=== PATIENT | female | born 1995 | race Caucasian/White ===

== ENCOUNTER 2023-03-03 19:32 | Inpatient (IN) | payer MEDICAID, OTHER ==
[2023-03-03] MEDS ORDERED: HALOPERIDOL LACTATE 5 MG/ML 1 ML VIAL IM PRN (19:51)
[2023-03-03] MEDS ORDERED: MAG HYDROX/AL HYDROX/SIMETH 30 ML CUP PO PRN (19:51)
[2023-03-03] MEDS ORDERED: LORazepam 1 MG TAB PO PRN (19:51)
[2023-03-03] MEDS ORDERED: LORazepam 2 MG/ML INJ IM PRN (19:53)
[2023-03-03] MEDS ORDERED: haloperidoL 5 MG TAB PO PRN (19:54)
[2023-03-03] MEDS: levETIRAcetam 500 MG TAB PO SCH (23:54)
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
[2023-03-04 08:37] LABS: Basophils # (A) 0.1 k/uL (0-0.2); Basophils % (A) 1 %; Eosinophils # (A) 0.7 k/uL (0-0.7); Eosinophils % (A) 8 %; HCT 27.8 % (34.0-46.0); HGB 9.6 gm/dL (11.4-16.0); Lymphocytes # (A) 2.3 k/uL (1.0-4.8); Lymphocytes % (A) 26 %; MCH 32.5 pg (25.0-35.0); MCHC 34.5 g/dL (31.0-37.0); MCV 94.1 fL (80.0-100.0); Mean Platelet Volume 6.9; Monocytes # (A) 0.5 k/uL (0-1.0); Monocytes % (A) 5 %; Neutrophils # (A) 5.1 k/uL (1.3-7.7); Neutrophils % (A) 58 %; Platelet Count 416 k/uL (150-450); RBC 2.95 m/uL (3.80-5.40); RDW 15.2 % (11.5-15.5); WBC 8.9 k/uL (3.8-10.6)
[2023-03-04] MEDS: levETIRAcetam 500 MG TAB PO SCH ×2 (08:48→20:44)
[2023-03-04] MEDS: POTASSIUM CHLORIDE ER 20 MEQ TAB.ER PO SCH (08:48)
[2023-03-04] MEDS: NIFEdipine XL 90 MG TAB.ER.24 PO SCH (08:48)
[2023-03-04] MEDS: PANTOPRAZOLE 40 MG TABLET PO SCH (08:49)
[2023-03-04] MEDS: THIAMINE 100 MG TAB PO SCH (08:49)
[2023-03-04] MEDS: MULTIVITAMINS, THERA 1 EACH TAB PO SCH (08:49)
[2023-03-04] MEDS: FOLIC ACID 1 MG TAB PO SCH (08:49)
[2023-03-04] MEDS: LIDOCAINE 5% PATCH TOPICAL SCH (08:50)
[2023-03-04 09:00] LABS: ALT 31 U/L (4-34); AST 32 U/L (14-36); African American GFR (CKD) 66 (>60 ml/min/1.73 sqM); Albumin 4.3 g/dL (3.5-5.0); Alkaline Phosphatase 110 U/L (38-126); Anion Gap 12 mmol/L; Blood Urea Nitrogen 16 mg/dL (7-17); Carbon Dioxide 23 mmol/L (22-30); Chloride 104 mmol/L (98-107); Glucose 95 mg/dL (74-99); Non-African American GFR(CKD) 57 (>60 ml/min/1.73 sqM); Potassium 3.9 mmol/L (3.5-5.1); Sodium 139 mmol/L (137-145); Total Bilirubin 1.1 mg/dL (0.2-1.3)
[2023-03-04] MEDS ORDERED: NICOTINE 14MG/24HR PATCH TRANSDERM SCH (09:00)
[2023-03-04] MEDS: ESCITALOPRAM 5 MG TAB PO SCH (15:51)
[2023-03-04] MEDS: ACETAMINOPHEN TAB 325 MG TAB PO PRN (15:52)
[2023-03-04] MEDS: NALTREXONE HCL 50 MG TAB PO SCH (15:52)
[2023-03-04 16:26] LABS: Chol/HDL Ratio 4.32 Ratio; LDL Cholesterol,Calculated 107.3 mg/dL (0.0-131.0)
--- NOTE | 2023-03-04 19:37 | P.HP ---
Psychiatric H&P - . H&P Date: 03/04/23 History & Physical: Allergies Allergy/AdvReac Type Severity Reaction Status Date / Time morphine Allergy Unknown Verified 03/03/23 19:51 vancomycin Allergy Unknown Verified 03/03/23 19:51 Vital Signs Temp 98.3 F 03/04/23 06:25 Pulse 94 03/04/23 06:25 Resp 14 03/04/23 06:25 BP 143/100 03/04/23 06:25 Pulse Ox 96 03/03/23 22:03 FiO2 Intake & Output 03/03/23 03/04/23 03/04/23 18:59 06:59 18:59 Weight 64.41 kg Laboratory Last Values WBC 8.9 k/uL (3.8-10.6) 03/04/23 07:56 RBC 2.95 m/uL (3.80-5.40) L 03/04/23 07:56 Hgb 9.6 gm/dL (11.4-16.0) L 03/04/23 07:56 Hct 27.8 % (34.0-46.0) L 03/04/23 07:56 MCV 94.1 fL (80.0-100.0) 03/04/23 07:56 MCH 32.5 pg (25.0-35.0) 03/04/23 07:56 MCHC 34.5 g/dL (31.0-37.0) 03/04/23 07:56 RDW 15.2 % (11.5-15.5) 03/04/23 07:56 Plt Count 416 k/uL (150-450) 03/04/23 07:56 MPV 6.9 03/04/23 07:56 Neutrophils % 58 % 03/04/23 07:56 Lymphocytes % 26 % 03/04/23 07:56 Monocytes % 5 % 03/04/23 07:56 Eosinophils % 8 % 03/04/23 07:56 Basophils % 1 % 03/04/23 07:56 Neutrophils # 5.1 k/uL (1.3-7.7) 03/04/23 07:56 Lymphocytes # 2.3 k/uL (1.0-4.8) 03/04/23 07:56 Monocytes # 0.5 k/uL (0-1.0) 03/04/23 07:56 Eosinophils # 0.7 k/uL (0-0.7) 03/04/23 07:56 Basophils # 0.1 k/uL (0-0.2) 03/04/23 07:56 Sodium 139 mmol/L (137-145) 03/04/23 07:56 Potassium 3.9 mmol/L (3.5-5.1) 03/04/23 07:56 Chloride 104 mmol/L (98-107) 03/04/23 07:56 Carbon Dioxide 23 mmol/L (22-30) 03/04/23 07:56 Anion Gap 12 mmol/L 03/04/23 07:56 BUN 16 mg/dL (7-17) 03/04/23 07:56 Creatinine 1.27 mg/dL (0.52-1.04) H 03/04/23 07:56 Est GFR (CKD-EPI)AfAm 66 (>60 ml/min/1.73 sqM) 03/04/23 07:56 Est GFR (CKD-EPI)NonAf 57 (>60 ml/min/1.73 sqM) 03/04/23 07:56 Glucose 95 mg/dL (74-99) 03/04/23 07:56 Calcium 10.0 mg/dL (8.4-10.2) 03/04/23 07:56 Total Bilirubin 1.1 mg/dL (0.2-1.3) 03/04/23 07:56 AST 32 U/L (14-36) 03/04/23 07:56 ALT 31 U/L (4-34) 03/04/23 07:56 Alkaline Phosphatase 110 U/L (38-126) 03/04/23 07:56 Total Protein 8.0 g/dL (6.3-8.2) 03/04/23 07:56 Albumin 4.3 g/dL (3.5-5.0) 03/04/23 07:56 TSH 0.582 mIU/L (0.465-4.680) 03/04/23 07:56 03/04/23 15:33 IDENTIFYING DATA: Patient is a 27 yo female, currently lives alone in an apartment, no kids, 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 HPI: Patient presented to the hospital [yesterday as a transfer from [facility]. patient was at the previous hospital for a month and had a complicated stay. she presented initally after an overdose on heroin and etoh. she required cpr and then a 10 day icu stay after having a cardiac arrest. [facility] patient was seen today wanderijg the hallway and was agreeable to speak to repairer typewriter. patient appeared to have a constricted affect, was initially fairly vague about her reason for coming in. she claims that she does not use heroin regularly and was simpy experimenting with it. she claims that she was drinking about 3/4 of a fifth of rum that night. claims it was not an intential overdose and states that she did not wish to . claims that she cannot remember much of the events that occured besides her friend bringing over some drugs for her to try. she does admitt to some depression and mild anxiety at this time. claims her sleep and appetite are fair. states that she mainyl has been sttrugling with etoh use for several years and has had several social and legal problems associated with it]. Patient denies any suicidal or homicidal ideations intent or plan. At this time patient denies any auditory or visual hallucinations. Patient denies any flight of ideas racing thoughts and increased in goal directed behavior. Patient admits to using etoh as noted above, states that she has had w/d in the past, last use before coming into the ospital. claims that she smokes thc daily. no cigarettes. PAST PSYCHIATRIC HISTORY: Patient states that [she has o previous mental health issues besides the etoh use/abuse]. [Patient denies being on any psychiatric medications.] [Patient denies any previous psychiatric hospitalizations.] [Patient denies any psychiatric outpatient follow-up.] [Patient denies any history of suicide attempts in the past.] Past Medical History: Seizure Disorder History of Any Multi-Drug Resistant Organisms: MRSA Date of last positivie culture/infection: 02/21/23 MDRO Source: sputum Past Anesthesia/Blood Transfusion Reactions: No Reported Reaction Past Psychological History: No Psychological Hx Reported Smoking Status: Never smoker ALLERGIES: as per EMR CHEMICAL DEPENDENCY HISTORY: as per HPI FAMILY PSYCHIATRIC/SUBSTANCE USE HISTORY: [denies] SOCIAL HISTORY: Patient was born and raised in [place], [place], claims she completed high school and did some college. 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 [facility] due [facility]oh related charges including 3 DUIs MENTAL STATUS EXAM: General Appearance: Patient appears to be [thin, tall,] stated age is alert, [directable, and attempts to cooperate]. Patient appears to have [poor] hygiene and grooming. Behavior: Patient is seated without any agitated behavior. []evasive at times Speech: Patient's speech is [fluent and nonpressured.] Mood/Affect: Patient reports their mood is [depressed], affect is congruent and constricted. Suicidality/Homicidality: Patient denies having any homicidal ideation intent or plan. [Denies any suicidal ideations intent or plan] Perceptions: Patient denies any visual hallucinations [and denies any auditory hallucinations] Though content/process: [There is no evidence of any delusional thought content and thought process is linear and goal-directed.] concrete. minimizing need for treatment. Memory and concentration: AOX3, grossly intact for the purposes of this session. Can spell "WORLD" backwards Judgment and insight: [poor] STRENGTHS/WEAKNESSES: strength is that patient is [resilient]. Weakness is that patient [has poor judgment and is impulsive] INTELLECT: [average] IMPRESSIONS: []depressive disorder NOS overdose cannabis use disorder opioid abuse alcohol use disorder severe PLAN: -Patient is admitted under [voluntary] status to MHU for stabilization of psychiatric symptoms and safety. Patient has signed [adult voluntary form and] [medication consent] and is placed in patient's chart. -Medications : Will start patient on []naltrexone 50 mg daily for etoh cravings, lexapro 5 mg daily for mood/anxiety -Ativan [and Haldol] PRN for agitation/aggression [-Patient was counselled on substance abuse and desired to cut back on use]. at this time patient is declining rehab. -Patient was informed of the risks, benefits and side effects of the medication and patient verbally consented to taking the medications. Patient signed med consent form and was placed in chart. -Internal Medicine consult to perform medical evaluation and physical. -NRT - not needed -SW on board for discharge planning. Encourage patient to participate in groups to work on coping skills. 03/04/23 19:24 03/04/23 19:29 03/04/23 19:36
[2023-03-05] MEDS ORDERED: LORazepam 0.5 MG TAB PO PRN (08:39)
[2023-03-05] MEDS ORDERED: LORazepam 1 MG TAB PO PRN ×3 (08:39)
[2023-03-05] MEDS ORDERED: chlordiazePOXIDE 25 MG CAP PO SCH (09:00)
[2023-03-05] MEDS: LIDOCAINE 5% PATCH TOPICAL SCH (09:51)
[2023-03-05] MEDS: ESCITALOPRAM 5 MG TAB PO SCH (09:52)
[2023-03-05] MEDS: NIFEdipine XL 90 MG TAB.ER.24 PO SCH (09:52)
[2023-03-05] MEDS: FOLIC ACID 1 MG TAB PO SCH (09:52)
[2023-03-05] MEDS: levETIRAcetam 500 MG TAB PO SCH ×2 (09:52→21:36)
[2023-03-05] MEDS: PANTOPRAZOLE 40 MG TABLET PO SCH (09:52)
[2023-03-05] MEDS: MULTIVITAMINS, THERA 1 EACH TAB PO SCH (09:52)
[2023-03-05] MEDS: POTASSIUM CHLORIDE ER 20 MEQ TAB.ER PO SCH (09:53)
[2023-03-05] MEDS: NALTREXONE HCL 50 MG TAB PO SCH (09:53)
[2023-03-05] MEDS: THIAMINE 100 MG TAB PO SCH (09:53)
--- NOTE | 2023-03-05 15:29 | XR ---
EXAMINATION TYPE: XR ribs bilat w pa chest xray DATE OF EXAM: 03/05/2023 COMPARISON: NONE HISTORY: Pain TECHNIQUE: Single view of the chest 8 views of the ribs are submitted. FINDINGS: The lungs are clear. No Evidence for pneumothorax. No evidence for focal contusion. Medi astinal structures are midline. Evaluation of the ribs fails to demonstrate evidence for displaced r ib fracture or secondary sign of rib fracture. IMPRESSION: Negative study
[2023-03-05] MEDS ORDERED: cloNIDine HCL 0.1 MG TAB PO PRN (16:07)
[2023-03-05] MEDS ORDERED: traZODone HCL 50 MG TAB PO PRN (16:10)
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
[2023-03-06] MEDS: NALTREXONE HCL 50 MG TAB PO SCH (08:53)
[2023-03-06] MEDS: PANTOPRAZOLE 40 MG TABLET PO SCH (08:53)
[2023-03-06] MEDS: MULTIVITAMINS, THERA 1 EACH TAB PO SCH (08:53)
[2023-03-06] MEDS: FOLIC ACID 1 MG TAB PO SCH (08:53)
[2023-03-06] MEDS: levETIRAcetam 500 MG TAB PO SCH ×2 (08:53→21:05)
[2023-03-06] MEDS: THIAMINE 100 MG TAB PO SCH (08:53)
[2023-03-06] MEDS: POTASSIUM CHLORIDE ER 20 MEQ TAB.ER PO SCH (08:54)
[2023-03-06] MEDS: NIFEdipine XL 90 MG TAB.ER.24 PO SCH (08:54)
[2023-03-06] MEDS: ESCITALOPRAM 5 MG TAB PO SCH (08:54)
[2023-03-06] MEDS: LIDOCAINE 5% PATCH TOPICAL SCH (08:57)
--- NOTE | 2023-03-06 12:34 | P.PN ---
Progress Note - Text Progress Note Date: 03/06/23 Interval History: Patient was seen wandering the halls and was directable and agreeable to speak with magazine writer in the office. She states that her mood is "good". She says that she is been attending groups including once for alcohol recovery. She is future oriented and hopes to find a sponsor for herself. Discussed plans for sobriety and patient expresses understanding that her recent substance use might have resulted in her . She states that she definitely does not want to use again because "it might be my last time". She describes that most of her family members suffer from alcohol addication. She says she would like to set a good example for her nieces and nephews. She was unable to identify a trigger for alcohol use was encouraged to consider this. She denies symptoms of hypertension currently. She states that she slept well last night with the trazodone and requests that for her to be scheduled. She reports good energy and feeling motivated. At this time patient denies any suicidal or homicidal ideations, intent or plan. Patient denies any auditory, visual hallucinations and denies any paranoia or delusions. Patient denies any side effects from the medications and has been compliant with meds. Mental Status Exam: General Appearance: Patient appears to be thin, tall, stated age is alert, directable, and attempts to cooperate. Patient appears to have fair hygiene and grooming. Behavior: Patient is seated without any agitated behavior. Speech: Patient's speech is fluent and nonpressured. Mood/Affect: Patient reports their mood is "good", affect is congruent and brighter Suicidality/Homicidality: Patient denies having any homicidal ideation intent or plan. Denies any suicidal ideations intent or plan Perceptions: Patient denies any visual hallucinations and denies any auditory hallucinations Though content/process: There is no evidence of any delusional thought content and thought process is linear and goal-directed. Memory and concentration: AOX3, grossly intact for the purposes of this session. Can spell "WORLD" backwards Judgment and insight: Poor Assessment depressive disorder NOS overdose cannabis use disorder opioid abuse alcohol use disorder severe PLAN: -Patient is admitted under [voluntary] status to MHU for stabilization of psychiatric symptoms and safety. Patient has signed [adult voluntary form and] [medication consent] and is placed in patient's chart. -Medications : Continue naltrexone 50 mg daily for etoh cravings, lexapro 5 mg daily for mood/anxiety - trazodone 50 mg qHS for sleep -Ativan [and Haldol] PRN for agitation/aggression [-Patient was counselled on substance abuse and desired to cut back on use]. at this time patient is declining rehab. -Patient was informed of the risks, benefits and side effects of the medication and patient verbally consented to taking the medications. Patient signed med consent form and was placed in chart. -Internal Medicine on board - clonidine PRN for hypertension >150/110 -NRT - not needed -SW on board for discharge planning. Encourage patient to participate in groups to work on coping skills.
[2023-03-06] MEDS ORDERED: traZODone HCL 50 MG TAB PO SCH (21:00)
[2023-03-06] MEDS: ACETAMINOPHEN TAB 325 MG TAB PO PRN (21:04)
[2023-03-07 06:38] VITALS: BP 126/63; PULSE 96; RESP 17; TEMP 98.1
[2023-03-07] MEDS: levETIRAcetam 500 MG TAB PO SCH (09:24)
[2023-03-07] MEDS: MULTIVITAMINS, THERA 1 EACH TAB PO SCH (09:25)
[2023-03-07] MEDS: NIFEdipine XL 90 MG TAB.ER.24 PO SCH (09:25)
[2023-03-07] MEDS: ESCITALOPRAM 5 MG TAB PO SCH (09:25)
[2023-03-07] MEDS: FOLIC ACID 1 MG TAB PO SCH (09:25)
[2023-03-07] MEDS: THIAMINE 100 MG TAB PO SCH (09:25)
[2023-03-07] MEDS: PANTOPRAZOLE 40 MG TABLET PO SCH (09:25)
[2023-03-07] MEDS: NALTREXONE HCL 50 MG TAB PO SCH (09:25)
[2023-03-07] MEDS: LIDOCAINE 5% PATCH TOPICAL SCH (09:26)
[2023-03-07] MEDS: POTASSIUM CHLORIDE ER 20 MEQ TAB.ER PO SCH (09:26)
--- NOTE | 2023-03-07 10:47 | P.DS ---
Providers Date of admission: 03/03/23 21:06 Expected date of discharge: 03/07/23 Attending physician: López Stratton MD Consults: 03/03/23 19:51 Consult Physician Routine Consulting Provider: Branden Hill Consult Reason/Comments: MEDICAL h& p Do you want consulting provider notified?: Yes Primary care physician: Stated None - Discharge Diagnosis(es) (1) Depressive disorder Current Visit: Yes Status: Acute Priority: High (2) Overdose Current Visit: Yes Status: Acute Priority: High (3) Cannabis use disorder Current Visit: Yes Status: Acute Priority: Medium (4) Opioid abuse Current Visit: Yes Status: Acute Priority: High (5) Alcohol use disorder, severe, dependence Current Visit: Yes Status: Acute Priority: Medium Hospital Course: Admission HPI: Admission note was completed by [global technical writer] "Patient is a 27 yo female, currently lives alone in an apartment, no kids, 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 Patient presented to the hospital [yesterday as a transfer [facility]. patient was at the previous hospital for a month and had a complicated stay. she presented initally after an overdose on heroin and etoh. she required cpr and then a 10 day icu stay after having a cardiac arrest. [facility] patient was seen today wanderijg the hallway and was agreeable to speak to global technical writer. patient appeared to have a constricted affect, was initially fairly vague about her reason for coming in. she claims that she does not use heroin regularly and was simpy experimenting with it. she claims that she was drinking about 3/4 of a fifth of rum that night. claims it was not an intential overdose and states that she did not wish to . claims that she cannot remember much of the events that occured besides her friend bringing over some drugs for her to try. she does admitt to some depression and mild anxiety at this time. claims her sleep and appetite are fair. states that she mainyl has been sttrugling with etoh use for several years and has had several social and legal problems associated with it]." Hospital course: Upon admission to the unit patient was [directable and agreeable to commence treatment and signed adult voluntary form] . Patient got along well with other patients on the unit and followed unit protocol. Patient was compliant with the medications and denied any side effects throughout hospital course. Patient was started on naltrexone by mouth 50 mg daily for alcohol cravings, Lexapro 5 mg daily for mood/anxiety, trazodone when necessary for insomnia. Patient spoke of [her] stressors and engaged in therapy both group and individual. Patient was also seen by medical team for history and physical exam. [patient was noted to have elevated blood pressure and was recommended to start nifedepine daily. patient also had an x ray of her ribs/chest which did not show any acute changes.] Throughout the course of the hospitalization patient gradually improved with regards to [mood, anxiety], etoh cravings, sleep and [returned back to their baseline level of functioning]. On the day of discharge patient de nied any suicidal or homicidal ideations intent or plan denied any auditory or visual hallucinations. Patient endorsed wanting to live for [his health and family along with her sobriety.] The patient denied any access to guns or weapons. Patient denied any paranoia and did not endorse any delusions. Patient does have a significant history of substance abuse [and] was counseled on abstaining from all substances including alcohol and marijuana. [Patient was offered however declined inpatient substance-abuse rehab.] [Patient elected to do outpatient substance use treatment programs and possibly enroll in AA meetings in her community.] Patient was also counseled on the medications and need for regular compliance and was encouraged to follow-up with their outpatient appointment for mental health and also for primary care. [Prior to discharge a family meeting will be arranged by clinical social worker to answer any questions and ensure safety upon discharge.] [] Mental status exam: General Appearance: Patient appears to be [tall, thin, ]stated age is alert, pleasant, and cooperative. Patient is in no acute distress and has improved hygiene and grooming Behavior: Patient is calmly seated without any agitated behavior. Speech: Patient's speech is fluent and nonpressured. Mood/Affect: Patient reports their mood is "good", affect is congruent Suicidality/Homicidality: Patient denies having any suicidal or homicidal ideation intent or plan. Perceptions: Patient denies any auditory or visual hallucinations. Though content/process: There is no evidence of any delusional thought content and thought process is linear and goal-directed. [more future oriented] Memory and concentration: AOX3, grossly intact for the purposes of this session. Can spell "WORLD" backwards correctly. Judgment and insight: [chronically poor, however has] improved with guarded prognosis Impression: Passive disorder unspecified Overdose Cannabis use disorder Opioid abuse Alcohol use disorder severe dependence Plan: -Continue with discharge today as patient has improved and stabilized psychiatrically and is not currently an imminent threat to [herself] and/or others. [Patient will remain at chronically elevated risk for harm to self and/or others due to her impulsivity and polysubstance abuse.] -Continue medications: []Naltrexone by mouth 50 mg daily for alcohol cravings, Lexapro 5 mg daily for mood/anxiety, trazodone 50 mg daily at bedtime when necessary for insomnia. -Patient was counseled on the need for medication compliance and appropriate follow-up at mental health and also primary care for medical issues. Patient verbalized understanding and agreed. -Social work to [arrange for and conduct family meeting to ensure safety upon discharge and answer any questions/concerns.] Social work also to arrange for patients follow up appointments for psychiatric care along with follow up with primary care provider. -Patient counseled on abstaining from recreational drugs and marijuana and alcohol. Was informed/educated on the adverse effects on their physical and mental health. [Patient verbally agreed and understood]. [Patient was offered substance abuse treatment however declined at this time.] she wanted to do outpatient treatment instead. -Patient was instructed to return to the hospital or seek immediate medical care if their psychiatric or medical symptoms do worsen or reoccur. Allergies Allergy/AdvReac Type Severity Reaction Status Date / Time morphine Allergy Unknown Verified 03/03/23 19:51 vancomycin Allergy Unknown Verified 03/03/23 19:51 Laboratory Results WBC 8.9 k/uL (3.8-10.6) 03/04/23 07:56 RBC 2.95 m/uL (3.80-5.40) L 03/04/23 07:56 Hgb 9.6 gm/dL (11.4-16.0) L 03/04/23 07:56 Hct 27.8 % (34.0-46.0) L 03/04/23 07:56 MCV 94.1 fL (80.0-100.0) 03/04/23 07:56 MCH 32.5 pg (25.0-35.0) 03/04/23 07:56 MCHC 34.5 g/dL (31.0-37.0) 03/04/23 07:56 RDW 15.2 % (11.5-15.5) 03/04/23 07:56 Plt Count 416 k/uL (150-450) 03/04/23 07:56 MPV 6.9 03/04/23 07:56 Neutrophils % 58 % 03/04/23 07:56 Lymphocytes % 26 % 03/04/23 07:56 Monocytes % 5 % 03/04/23 07:56 Eosinophils % 8 % 03/04/23 07:56 Basophils % 1 % 03/04/23 07:56 Neutrophils # 5.1 k/uL (1.3-7.7) 03/04/23 07:56 Lymphocytes # 2.3 k/uL (1.0-4.8) 03/04/23 07:56 Monocytes # 0.5 k/uL (0-1.0) 03/04/23 07:56 Eosinophils # 0.7 k/uL (0-0.7) 03/04/23 07:56 Basophils # 0.1 k/uL (0-0.2) 03/04/23 07:56 Sodium 139 mmol/L (137-145) 03/04/23 07:56 Potassium 3.9 mmol/L (3.5-5.1) 03/04/23 07:56 Chloride 104 mmol/L (98-107) 03/04/23 07:56 Carbon Dioxide 23 mmol/L (22-30) 03/04/23 07:56 Anion Gap 12 mmol/L 03/04/23 07:56 BUN 16 mg/dL (7-17) 03/04/23 07:56 Creatinine 1.27 mg/dL (0.52-1.04) H 03/04/23 07:56 Est GFR (CKD-EPI)AfAm 66 (>60 ml/min/1.73 sqM) 03/04/23 07:56 Est GFR (CKD-EPI)NonAf 57 (>60 ml/min/1.73 sqM) 03/04/23 07:56 Glucose 95 mg/dL (74-99) 03/04/23 07:[address] Glu mg/dL 88 03/04/23 07:56 Hemoglobin A1c 4.7 % (0.0-6.0) 03/04/23 07:56 Calcium 10.0 mg/dL (8.4-10.2) 03/04/23 07:56 Total Bilirubin 1.1 mg/dL (0.2-1.3) 03/04/23 07:56 AST 32 U/L (14-36) 03/04/23 07:56 ALT 31 U/L (4-34) 03/04/23 07:56 Alkaline Phosphatase 110 U/L (38-126) 03/04/23 07:56 Total Protein 8.0 g/dL (6.3-8.2) 03/04/23 07:56 Albumin 4.3 g/dL (3.5-5.0) 03/04/23 07:56 Triglycerides 186.00 mg/dL (0.00-149.00) H 03/04/23 07:56 Cholesterol 188.00 mg/dL (0.00-200.00) 03/04/23 07:56 LDL Cholesterol, Calc 107.3 mg/dL (0.0-131.0) 03/04/23 07:56 VLDL Cholesterol, Calc 37.20 mg/dL (5.00-40.00) 03/04/23 07:56 HDL Cholesterol 43.50 mg/dL (40.00-60.00) 03/04/23 07:56 Cholesterol/HDL Ratio 4.32 Ratio 03/04/23 07:56 TSH 0.582 mIU/L (0.465-4.680) 03/04/23 07:56 Vital Signs Temp 98.1 F 03/07/23 06:38 Pulse 96 03/07/23 06:38 Resp 17 03/07/23 06:38 BP 126/63 03/07/23 06:38 Pulse Ox 96 03/07/23 06:38 FiO2 Intake & Output 03/06/23 03/07/23 03/07/23 18:59 06:59 18:59 Weight 63.5 kg Patient Condition at Discharge: Stable Plan - Discharge Summary New Discharge Prescriptions: New Folic Acid 1 mg PO DAILY 30 Days #30 tab Escitalopram [Lexapro] 5 mg PO DAILY 30 Days #30 tab Multivitamins, Thera [Multivitamin (formulary)] 1 each PO DAILY 30 Days #30 tab Naltrexone HCl [Revia] 50 mg PO DAILY 30 Days #30 tab traZODone HCL [Desyrel] 50 mg PO HS PRN 30 Days #30 tab PRN Reason: Insomnia levETIRAcetam [Keppra] 500 mg PO BID 30 Days #0 tab NIFEdipine XL [Procardia XL] 90 mg PO DAILY 30 Days #30 tab Pantoprazole [Protonix] 40 mg PO AC-BRKFST 30 Days #30 tab Acetaminophen Tab [Tylenol] 650 mg PO Q4HR PRN tab PRN Reason: Pain/Discomfort Thiamine [Vitamin B-1] 100 mg PO DAILY 30 Days #30 tab Discontinued levETIRAcetam [Keppra] 500 mg PO Q12HR Discharge Medication List Acetaminophen Tab [Tylenol] 650 mg PO Q4HR PRN tab 03/07/23 [Rx] Escitalopram [Lexapro] 5 mg PO DAILY 30 Days #30 tab 03/07/23 [Rx] Folic Acid 1 mg PO DAILY 30 Days #30 tab 03/07/23 [Rx] Multivitamins, Thera [Multivitamin (formulary)] 1 each PO DAILY 30 Days #30 tab 03/07/23 [Rx] NIFEdipine XL [Procardia XL] 90 mg PO DAILY 30 Days #30 tab 03/07/23 [Rx] Naltrexone HCl [Revia] 50 mg PO DAILY 30 Days #30 tab 03/07/23 [Rx] Pantoprazole [Protonix] 40 mg PO AC-BRKFST 30 Days #30 tab 03/07/23 [Rx] Thiamine [Vitamin B-1] 100 mg PO DAILY 30 Days #30 tab 03/07/23 [Rx] levETIRAcetam [Keppra] 500 mg PO BID 30 Days #0 tab 03/07/23 [Rx] traZODone HCL [Desyrel] 50 mg PO HS PRN 30 Days #30 tab 03/07/23 [Rx] Follow up Appointment(s)/Referral(s): [facility] [[facility]STA[facility]] - 1 Week Patient Instructions/Handouts: Depression (DC), Polysubstance Abuse (ED) Activity/Diet/Wound Care/Special Instructions: Avoid the use of street drugs and alcohol. Take all medications as prescribed. When you are in need of refills on your medications, please contact your medical provider and/or outpatient psychiatrist to have this done. Please go to scheduled outpatient appointments for aftercare treatment. If symptoms return or become worse, call the crisis line at and/or go to the nearest emergency room for evaluation. Discharge Disposition: HOME SELF-CARE
[2023-03-07 11:28] LABS: Calcium 10.1 mg/dL (8.4-10.2); Potassium 5.1 mmol/L (3.5-5.1)
== END 2023-03-07 12:59 | disposition home or self-care (01) | DRG 754 ==
LOC: 3MHU 21:06
PROVIDERS: ADMIT Psychiatry & Neurology Psychiatry; ATTEND Psychiatry & Neurology Psychiatry
DX: F32.A Depression, unspecified (principal); G47.00 Insomnia, unspecified; T40.1X2A Poisoning by heroin, intentional self-harm, initial encounter; Z86.74 Personal history of sudden cardiac arrest; F12.10 Cannabis abuse, uncomplicated; F10.20 Alcohol dependence, uncomplicated; F11.10 Opioid abuse, uncomplicated; F41.9 Anxiety disorder, unspecified; G40.909 Epilepsy, unspecified, not intractable, without status epilepticus; Z79.899 Other long term (current) drug therapy; Z65.3 Problems related to other legal circumstances; Z28.21 Immunization not carried out because of patient refusal; Z86.14 Personal history of Methicillin resistant Staphylococcus aureus infection; Z71.41 Alcohol abuse counseling and surveillance of alcoholic
CPT/HCPCS: 71111; 80048; 80053; 80061; 83036; 84443; 85025

== ENCOUNTER 2025-03-09 23:11 | Emergency (ER) | payer OTHER ==
[2025-03-10] MEDS: SODIUM CHLORIDE 0.9% 1,000 ML IV STA (00:09)
[2025-03-10] MEDS: levETIRAcetam IV 500 MG/5 ML VIAL IVP STA (00:09)
[2025-03-10 00:25] LABS: Basophils # (A) 0.04 10*3/uL (0.00-0.10); Basophils % (A) 0.5 %; Eosinophils # (A) 0.11 10*3/uL (0.04-0.35); Eosinophils % (A) 1.4 %; HCT 37.6 % (37.2-46.3); HGB 13.3 g/dL (12.0-15.0); Lymphocytes # (A) 2.36 10*3/uL (0.90-5.00); Lymphocytes % (A) 29.2 %; MCHC 35.4 g/dL (32.0-37.0); MCV 90.6 fL (80.0-97.0); Mean Platelet Volume 10.1 fL (9.5-12.2); Monocytes # (A) 0.69 10*3/uL (0.20-1.00); Monocytes % (A) 8.6 %; Neutrophils # (A) 4.84 10*3/uL (1.80-7.70); Neutrophils % (A) 59.9 %; Platelet Count 269 10*3/uL (140-440); RBC 4.15 10*6/uL (4.10-5.20); RDW 11.8 % (11.5-14.5); WBC 8.07 10*3/uL (4.50-10.00)
[2025-03-10 00:58] LABS: HCG,Qualitative Serum Not Detected
[2025-03-10 01:02] LABS: ALT 16 U/L (4-34); AST 19 U/L (14-36); African American GFR (CKD) >90 (>60 ml/min/1.73 sqM); Albumin 4.3 g/dL (3.5-5.0); Alcohol <10 mg/dL; Alkaline Phosphatase 45 U/L (38-126); Anion Gap 12 mmol/L; Blood Urea Nitrogen 18 mg/dL (7-17); Carbon Dioxide 22 mmol/L (22-30); Chloride 104 mmol/L (98-107); Glucose 112 mg/dL (74-99); Non-African American GFR(CKD) >90 (>60 ml/min/1.73 sqM); Potassium 3.8 mmol/L (3.5-5.1); Sodium 138 mmol/L (137-145); Total Bilirubin 0.6 mg/dL (0.2-1.3)
--- NOTE | 2025-03-10 01:33 | ED ---
General Adult HPI - General Chief complaint: Seizure Stated complaint: Seizure Time Seen by Provider: 03/09/25 23:30 Source: patient, RN notes reviewed, old records reviewed Mode of arrival: ambulatory Limitations: no limitations - History of Present Illness Initial comments: Patient is a 29-year-old female presents emergency department complaining of breakthrough seizure. Previously was on seizure medications however has been off for over a year as her neurologist stated she does not need to take them if she has not had a seizure. Has not been taking them for over a year. Was on Keppra previously but cannot remember the dose. Last seizure was greater than a year ago. Seizure occurred at a hotel. Witnessed by significant other. Lasted for approximately 30 seconds. Tonic-clonic movements. Mild confusion after. Did not bite her tongue. Did not have urinary incontinence. Currently back to baseline. Seizure occurred approximately an hour prior to arrival. Presents for further evaluation at this time. - Related Data Previous Rx's Medication Instructions Recorded Acetaminophen Tab [Tylenol] 650 mg PO Q4HR PRN tab 03/07/23 Escitalopram [Lexapro] 5 mg PO DAILY 30 Days #30 tab 03/07/23 Folic Acid 1 mg PO DAILY 30 Days #30 tab 03/07/23 Multivitamins, Thera [Multivitamin 1 each PO DAILY 30 Days #30 tab 03/07/23 (formulary)] NIFEdipine XL [Procardia XL] 90 mg PO DAILY 30 Days #30 tab 03/07/23 Naltrexone HCl [Revia] 50 mg PO DAILY 30 Days #30 tab 03/07/23 Pantoprazole [Protonix] 40 mg PO AC-BRKFST 30 Days #30 tab 03/07/23 Thiamine [Vitamin B-1] 100 mg PO DAILY 30 Days #30 tab 03/07/23 levETIRAcetam [Keppra] 500 mg PO BID 30 Days #0 tab 03/07/23 traZODone HCL [Desyrel] 50 mg PO HS PRN 30 Days #30 tab 03/07/23 levETIRAcetam [Keppra] 500 mg PO Q12HR 30 Days #60 tab 03/10/25 Allergies Allergy/AdvReac Type Severity Reaction Status Date / Time morphine Allergy Unknown Verified 03/09/25 23:15 vancomycin Allergy Unknown Verified 03/09/25 23:15 Review of Systems ROS Statement: Those systems with pertinent positive or pertinent negative responses have been documented in the HPI. Review of Systems: CONST: Denies fever EYES: Denies blurry vision ENT: Denies nasal congestion C/V: Denies Chest pain RESP: Denies shortness of breath GI: Denies abdominal pain : Denies dysuria SKIN: Denies rash. MSK: Denies joint pain. NEURO: Denies headache ROS Other: All systems not noted in ROS Statement are negative. Past Medical History Past Medical History: Seizure Disorder History of Any Multi-Drug Resistant Organisms: MRSA Date of last positivie culture/infection: 02/21/23 MDRO Source:: sputum Past Surgical History: No Surgical Hx Reported Past Anesthesia/Blood Transfusion Reactions: No Reported Reaction Past Psychological History: Anxiety Smoking Status: Vaper Past Alcohol Use History: None Reported Past Drug Use History: None Reported General Exam - General Exam Comments Initial Comments: General: Appears in no acute distress. HEAD: Normal with no signs of head trauma. EYES: PERRLA, EOMI, conjunctiva normal, no discharge. Pupils are 3 mm and equal bilaterally. ENT: Hearing grossly intact RESPIRATORY: Clear breath sounds bilaterally. No wheezes, rales, or rhonchi. C/V: Regular rate and rhythm. S1 and S2 auscultated, no edema, peripheral pulses 2+ and intact throughout ABD: Abd is soft, nontender, nondistended EXT: No obvious deformity. SKIN: No rashes or lesions observed on exposed skin. NEURO: Alert and oriented x 4. Cranial nerves II-XII intact. No focal sensory or strength deficits. Limitations: no limitations Course Vital Signs 03/09/25 03/10/25 03/10/25 23:12 00:21 01:42 Temperature 98 F 98.3 F Pulse Rate 95 84 88 Respiratory 18 17 18 Rate Blood Pressure 124/91 128/71 122/63 O2 Sat by Pulse 98 98 97 Oximetry Medical Decision Making - Medical Decision Making Was pt. sent in by a medical professional or institution (, PA, HAND TENNIS BALL COVERER, urgent care, hospital, or fdc...) When possible be specific @ -No Did you speak to anyone other than the patient for history (EMS, parent, family, police, friend...)? What history was obtained from this source @ -No Did you review nursing and triage notes (agree or disagree)? Why? @ -I reviewed and agree with nursing and triage notes Were old charts reviewed (outside hosp., previous admission, EMS record, old EKG, old radiological studies, urgent care reports/EKG's, fdc records)? Report findings @ -No old charts were reviewed Differential Diagnosis (chest pain, altered mental status, abdominal pain women, abdominal pain men, vaginal bleeding, weakness, fever, dyspnea, syncope, headache, dizziness, GI bleed, back pain, seizure, CVA, palpatations, mental health, musculoskeletal)? @ -Differential Seizure: Recurrent seizure disorder, febrile seizure, alcohol withdrawal, stimulants, meningitis, encephalitis, intercranial hemorrhage, intracranial tumor, stroke, eclampsia, thyrotoxicosis, hypocalcemia, hyponatremia, hypernatremia, hypomagnesemia, psychogenic, this is not meant to be an all-inclusive list. EKG interpreted by me (3pts min.). @ -As above X-rays interpreted by me (1pt min.). @ -None done CT interpreted by me (1pt min.). @ -None done U/S interpreted by me (1pt. min.). @ -None done What testing was considered but not performed or refused? (CT, X-rays, U/S, labs)? Why? @ -None What meds were considered but not given or refused? Why? @ -None Did you discuss the management of the patient with other professionals (professionals i.e. , PA, HAND TENNIS BALL COVERER, lab, RT, psych nurse, manager social work, desulfurizer machine, teacher, executive vice president and chief financial officer, dependency case manager)? Give summary @ -No Was smoking cessation discussed for >3mins.? @ -No Was critical care preformed (if so, how long)? @ -No Were there social determinants of health that impacted care today? How? (Homelessness, low income, unemployed, alcoholism, drug addiction, transportation, low edu. Level, literacy, decrease access to med. care, nursing home, rehab)? @ -No Was there de-escalation of care discussed even if they declined (Discuss DNR or withdrawal of care, Hospice)? DNR status @ -No What co-morbidities impacted this encounter? (DM, HTN, Smoking, COPD, CAD, Cancer, CVA, ARF, Chemo, Hep., AIDS, mental health diagnosis, sleep apnea, mor bid obesity)? @ -Seizure disorder Was patient admitted / discharged? Hospital course, mention meds given and route, prescriptions, significant lab abnormalities, going to OR and other pertinent info. @ -Patient presents to the emergency department for breakthrough seizure. Currently not on antiepileptics as she has been off at the recommendation of her neurologist for over the last year. Currently is not postictal. Exam unremarkable. Vitals within acceptable limits. Patient will be given a dose of IV Keppra as well as fluids and we will obtain basic labs. She will be watched for multiple hours here in the department. She was in agreement this plan. EKG showed no signs of acute ischemia. Laboratory studies are all within acceptable limits. After multiple hours of observation here in the department, she has not had any further seizures. I believe is safe for her to be discharg ed home. She was in agreement this plan. I will provide her with a prescription for Keppra as well as follow-up information with neurology. Strict return precautions were discussed. I will provide the patient with a prescription for Keppra. I instructed the patient to follow up with their PCP in the next 1-3 days.. I explained that the patient should return to the emergency department if they experience any worsening symptoms. Strict return precautions were discussed with the patient. The patient expressed understanding of these instructions. I answered all questions that the patient had. The patient was discharged home in good condition with their prescriptions and follow up information. Undiagnosed new problem with uncertain prognosis? @ -No Drug Therapy requiring intensive monitoring for toxicity (Heparin, Nitro, Insulin, Cardizem)? @ -No Were any procedures done? @ -No Diagnosis/symptom? @ -Breakthrough seizure Acute, or Chronic, or Acute on Chronic? @ -Acute Uncomplicated (without systemic symptoms) or Complicated (systemic symptoms)? @ -Uncomplicated Side effects of treatment? @ -No Exacerbation, Progression, or Severe Exacerbation? @ -No Poses a threat to life or bodily function? How? (Chest pain, USA, VT, pneumonia, PE, COPD, DKA, ARF, appy, cholecystitis, CVA, Diverticulitis, Homicidal, Suicidal, threat to staff... and all critical care pts) @ -Unlikely at this time - Lab Data Result diagrams: 03/10/25 00:02 03/10/25 00:02 Lab Results 03/10/25 03/10/25 Range/Units 00:02 00:02 WBC 8.07 (4.50-10.00) 10*3/uL RBC 4.15 (4.10-5.20) 10*6/uL Hgb 13.3 (12.0-15.0) g/dL Hct 37.6 (37.2-46.3) % MCV 90.6 (80.0-97.0) fL MCH 32.0 (27.0-32.0) pg MCHC 35.4 (32.0-37.0) g/dL Plt Count 269 (140-440) 10*3/uL MPV 10.1 (9.5-12.2) fL Immature Gran % (Auto) 0.4 % Neutrophils % 59.9 % Lymphocytes % 29.2 % Monocytes % 8.6 % Eosinophils % 1.4 % Basophils % 0.5 % Immature Gran # 0.03 (0.00-0.04) 10*3/uL Neutrophils # 4.84 (1.80-7.70) 10*3/uL Lymphocytes # 2.36 (0.90-5.00) 10*3/uL Monocytes # 0.69 (0.20-1.00) 10*3/uL Eosinophils # 0.11 (0.04-0.35) 10*3/uL Basophils # 0.04 (0.00-0.10) 10*3/uL Sodium 138 (137-145) mmol/L Potassium 3.8 (3.5-5.1) mmol/L Chloride 104 (98-107) mmol/L Carbon Dioxide 22 (22-30) mmol/L Anion Gap 12 mmol/L BUN 18 H (7-17) mg/dL Creatinine 0.64 (0.52-1.04) mg/dL Est GFR (CKD-EPI)AfAm >90 (>60 ml/min/1.73 sqM) Est GFR (CKD-EPI)NonAf >90 (>60 ml/min/1.73 sqM) Glucose 112 H (74-99) mg/dL Calcium 10.0 (8.4-10.2) mg/dL Magnesium 2.0 (1.6-2.3) mg/dL Total Bilirubin 0.6 (0.2-1.3) mg/dL AST 19 (14-36) U/L ALT 16 (4-34) U/L Alkaline Phosphatase 45 (38-126) U/L Total Protein 7.0 (6.3-8.2) g/dL Albumin 4.3 (3.5-5.0) g/dL HCG, Qual Not Detected Serum Alcohol <10 mg/dL - EKG Data -: EKG Interpreted by Me EKG Comments: 12-lead Electrocardiogram Interpretation Note EKG was reviewed and interpreted by myself. 12-lead ECG performed at 0009 is interpreted by me as revealing normal sinus rhythm at a rate of 78 beats per minute. [place] is normal. NM interval is 188 ms, QRS duration is 94 ms, QTc is 408 ms.. There were no ST or T wave abnormalities to suggest myocardial ischemia or injury. R wave progression across the precordium was satisfactory. By my interpretation this EKG is non-diagnostic for acute ischemia. Disposition Clinical Impression: Breakthrough seizure Disposition: HOME SELF-CARE Condition: Good Instructions (If sedation given, give patient instructions): Seizure/Epilepsy Discharge Instructions & Follow-Up Additional Instructions: As you had a breakthrough seizure, you cannot operate heavy machinery or motor vehicles for at least 6 months or until cleared by your neurologist. Follow-up with neurology in the next 1 to 3 days. Return to the ER for any worsening symptoms. Prescriptions: levETIRAcetam [Keppra] 500 mg PO Q12HR 30 Days #60 tab Is patient prescribed a controlled substance at d/c from ED?: No Referrals: None,Stated [Primary Care Provider] - 1-2 days Korin Walker MD [REFERRING] - 1-2 days Time of Disposition: 01:33
[2025-03-10 01:44] VITALS: BP 122/63; PULSE 88; RESP 18; TEMP 98.3
== END 2025-03-10 01:44 | disposition home or self-care (01) ==
LOC: EC 23:11
DX: G40.909 Epilepsy, unspecified, not intractable, without status epilepticus (principal); F17.290 Nicotine dependence, other tobacco product, uncomplicated; Z88.1 Allergy status to other antibiotic agents; Z88.5 Allergy status to narcotic agent
CPT/HCPCS: 36415; 93005; 80053; 83735; 85025; 84703; 99284; 96374; 96361; G0480; J1953; 80320